=== PATIENT | female | born 1975 | race Caucasian/White ===

== ENCOUNTER 2017-08-04 17:18 | Emergency (ER) | payer OTHER ==
[~2017-08-04] VITALS: Ht 149.9 cm; Wt 69.5 kg
[2017-08-04] MEDS ORDERED: BECL8.7A7 IH (17:54)
[2017-08-04] MEDS ORDERED: GLIP10 PO (17:54)
[2017-08-04] MEDS ORDERED: ATOR40TA28 PO (17:54)
[2017-08-04] MEDS ORDERED: GABA-529 PO (17:54)
[2017-08-04] MEDS ORDERED: METF500T4 PO (17:54)
[2017-08-04] MEDS ORDERED: VENL-66 PO (17:54)
[2017-08-04] MEDS ORDERED: LORA1TAB3 PO (17:54)
[2017-08-04 17:57] LABS: GLUCOSE,POINT OF CARE 338 MG/DL (70-110)
[2017-08-04] MEDS ORDERED: ACETAMINOPHEN/CODEINE 300-30 MG TABLET PO ONE (18:45)
[2017-08-04] MEDS ORDERED: AMOXICILLIN TRIHYDRATE 250 MG CAPSULE PO ONE (18:45)
[2017-08-04 18:52] VITALS: BP 135/88
== END 2017-08-04 19:36 | disposition home or self-care (01) ==
LOC: EMS 17:22
DX: H66.92 Otitis media, unspecified, left ear (principal); H92.01 Otalgia, right ear; E11.9 Type 2 diabetes mellitus without complications
CPT/HCPCS: 82962; 99283

== ENCOUNTER 2017-11-26 17:27 | Emergency (ER) | payer OTHER ==
[~2017-11-26] VITALS: Ht 162.6 cm; Wt 72.7 kg
[~2017-11-26 17:27] MED LIST: ATOR40TA28 PO; BECL8.7A7 IH; GABA-529 PO; GLIP10 PO; LORA1TAB3 PO; METF500T4 PO; VENL-66 PO
[2017-11-26 18:27] LABS: GLUCOSE,POINT OF CARE 163 MG/DL (70-110)
[2017-11-26 19:51] LABS: BASOPHILS % (AUTO) 0.6 % (0.0-2.0); EOSINOPHILS % (AUTO) 1.3 % (1.0-6.0); HEMATOCRIT 39.4 % (36-46); HEMOGLOBIN 13.1 g/dL (12.0-16.0); LYMPHOCYTES # (AUTO) 4.2 K/uL (1.0-4.8); LYMPHOCYTES % (AUTO) 34.8 % (22.0-44.0); MEAN CORPUSCULAR HEMOGLOBIN 27.2 pg (26.0-34.0); MEAN CORPUSCULAR HGB CONC 33.2 G/dL (31.0-37.0); MEAN CORPUSCULAR VOLUME 82 fL (80-100); MONOCYTES # (AUTO) 0.7 K/uL (0.1-1.0); MONOCYTES % (AUTO) 6.1 % (2.0-9.0); NEUTROPHILS # (AUTO) 6.9 K/uL (1.8-7.7); NEUTROPHILS % (AUTO) 57.2 % (40.0-70.0); PLATELET COUNT (AUTO) 200 K/uL (150-450); RED CELL DISTRIBUTION WIDTH 14.6 % (11.5-14.5)
[2017-11-26 20:00] LABS: ANION GAP 11 mmol/L (8-16); CALCIUM, TOTAL 8.6 mg/dL (8.8-10.5); CARBON DIOXIDE 24 mmol/L (22-29); CHLORIDE 102 mmol/L (98-107); CREATININE 0.47 mg/dL (0.60-1.30); GLOMERULAR FILTR. RATE CALC > 60 mL/min (>60); GLUCOSE,RANDOM 158 mg/dL (70-110); POTASSIUM 3.9 mmol/L (3.5-5.1); SODIUM SERUM 137 mmol/L (136-145); UREA NITROGEN, BLOOD 8 mg/dL (7-18)
[2017-11-26 20:06] LABS: ALANINE AMINOTRANSFERASE 22 U/L (12-78); ALBUMIN 3.3 g/dL (3.4-5.0); ALKALINE PHOSPHATASE 91 U/L (46-116); ASPARTATE AMINOTRANSFERASE 15 U/L (15-37); BILIRUBIN,TOTAL 0.3 mg/dL (0.1-1.0); LIPASE 88 U/L (73-393); TOTAL PROTEIN, SERUM 6.7 g/dL (6.4-8.2)
[2017-11-26] MEDS ORDERED: ASPIRIN 325 MG TABLET PO ONE (21:15)
[2017-11-26] MEDS ORDERED: KETOROLAC TROMETHAMINE 30 MG/ML VIAL IVP ONE (22:30)
[2017-11-26] MEDS ORDERED: SODIUM CHLORIDE 0.9% 1,000 ML IV ONE (22:30)
[2017-11-26 23:03] VITALS: BP 134/83
== END 2017-11-26 23:10 | disposition home or self-care (01) ==
LOC: EMS 17:27
DX: R07.9 Chest pain, unspecified (principal); F41.9 Anxiety disorder, unspecified; E11.9 Type 2 diabetes mellitus without complications; E78.5 Hyperlipidemia, unspecified
CPT/HCPCS: 36415; 71045; 80053; 81025; 82962; 83690; 84484; 85025; 93005; 96374; 99285; J1885; J7030